=== PATIENT | female | born 1965 | race Asian ===

== ENCOUNTER 2021-09-10 15:56 | Outpatient (CLI) | payer BC | END 2021-09-10 15:57 | disposition home or self-care (01) | LOC: CSHMAMMO 15:56 | PROVIDERS: ATTEND Family Medicine | DX: Z12.31 Encounter for screening mammogram for malignant neoplasm of breast (principal) | CPT/HCPCS: 77063; 77067 ==

== ENCOUNTER 2022-01-20 13:28 | Outpatient (CLI) | payer BC ==
[2022-01-20 14:45] LABS: Hemoglobin 13.5 g/dL (12.0-15.5); Mean Corpuscular HGB CONC 33.9 g/dL (32.0-36.0); Mean Corpuscular Hemoglobin 29.3 pg (27.0-33.0); Mean Corpuscular Volume 86.3 fl (81.6-98.3); Mean Platelet Volume 10.9 fl (7.4-10.4); Platelet Count 227 10x3/uL (150-450); RBC Distribution Width 13.7 % (11.5-14.5); Red Blood Cell (RBC) Count 4.61 10x6/uL (3.90-5.03); White Blood Cell (WBC) Count 6.8 10x3/uL (3.5-10.5)
[2022-01-20 14:56] LABS: Anion Gap 13 mmol/L (10-20); BUN (Urea Nitrogen) 11 mg/dL (9.8-20.1); Calc. Creatinine Clearance 0 mL/min (70-130); Calcium 9.6 mg/dL (7.8-10.44); Carbon Dioxide 25 mmol/L (22-29); Chloride 108 mmol/L (98-107); Glucose 101 mg/dL (70-105); Sodium 142 mmol/L (136-145)
== END 2022-01-20 13:29 | disposition home or self-care (01) ==
LOC: CSHLAB 13:28
PROVIDERS: ATTEND Podiatrist Foot & Ankle Surgery
DX: Z01.818 Encounter for other preprocedural examination (principal); Z20.822 Contact with and (suspected) exposure to COVID-19; M20.22 Hallux rigidus, left foot; M20.21 Hallux rigidus, right foot
CPT/HCPCS: 80048; 85027; 93005; 93010; U0003; U0005

== ENCOUNTER 2022-01-23 10:49 | Day surgery (SDC) | payer BC ==
[2022-01-20 12:40] VITALS: BMI 32.4
[2022-01-23] MEDS ORDERED: Lidocaine 2% MPF 10 ML AMP (For Epidural Use) ONE (10:50)
[2022-01-23] MEDS ORDERED: Bupivacaine PF 0.5% 30 ML VIAL ONE (10:51)
[2022-01-23] MEDS ORDERED: Lidocaine 1% MPF 2 ML VIAL ONE (11:35)
[2022-01-23] MEDS ORDERED: Ondansetron PF 4 MG/2 ML Vial ONE (11:47)
[2022-01-23] MEDS ORDERED: Lidocaine 1% PF 5 ML VIAL ONE (11:47)
[2022-01-23] MEDS ORDERED: PROPOFOL 20 ML ONE (11:47)
[2022-01-23] MEDS ORDERED: Dexamethasone 4 mg/ml Vial ONE ×3 (11:47→14:36)
[2022-01-23] MEDS ORDERED: Fentanyl 100 MCG/2 ML VIAL ONE (12:24)
[2022-01-23] MEDS ORDERED: CEFAZOLIN 1 GM VIAL ONE (12:25)
[2022-01-23] MEDS ORDERED: HYDROmorphone 0.5 MG/0.5 ML SYRINGE ONE (13:37)
[2022-01-23] MEDS ORDERED: PHENYLEPHRINE-NS 100 MCG/ML 10 ML SYRINGE ONE (13:56)
[2022-01-23] MEDS ORDERED: Ketorolac Tromethamine 30 MG/ML VIAL ONE (14:40)
== END 2022-01-23 17:57 | disposition home or self-care (01) ==
LOC: CSHSDC 10:49
PROVIDERS: ATTEND Podiatrist Foot & Ankle Surgery
PROC: 0SRN0JZ Replacement of Left Metatarsal-Phalangeal Joint with Synthetic Substitute, Open Approach (ICD-10-PCS; principal; 2022-01-23)
PROC: 0SRM0JZ Replacement of Right Metatarsal-Phalangeal Joint with Synthetic Substitute, Open Approach (ICD-10-PCS; principal; 2022-01-23)
DX: M20.21 Hallux rigidus, right foot (principal); M20.22 Hallux rigidus, left foot; M19.90 Unspecified osteoarthritis, unspecified site; I10 Essential (primary) hypertension; E78.5 Hyperlipidemia, unspecified; Z79.899 Other long term (current) drug therapy; Z88.6 Allergy status to analgesic agent; Z91.048 Other nonmedicinal substance allergy status
CPT/HCPCS: C1713; C1776; J0690; J1100; J1170; J1885; J2405; J2704; J3010; S0020

== ENCOUNTER 2022-05-04 15:39 | Outpatient (CLI) | payer BC | END 2022-05-04 15:40 | disposition home or self-care (01) | LOC: CSHULT 15:39 | PROVIDERS: ATTEND Family Medicine | DX: N95.0 Postmenopausal bleeding (principal) | CPT/HCPCS: 76856 ==

== ENCOUNTER 2024-02-09 13:53 | Outpatient (CLI) | payer BC | END 2024-02-09 13:54 | disposition home or self-care (01) | LOC: CSHMAMMO 13:53 | PROVIDERS: ATTEND Family Medicine | DX: Z12.31 Encounter for screening mammogram for malignant neoplasm of breast (principal) | CPT/HCPCS: 77063; 77067 ==

== ENCOUNTER 2025-05-07 16:04 | Outpatient (CLI) | payer BC | END 2025-05-07 16:05 | disposition home or self-care (01) | LOC: CSHRAD 16:04 | PROVIDERS: ATTEND Family Medicine | DX: M25.521 Pain in right elbow (principal) ==